=== PATIENT | male | born 1965 | race Caucasian/White ===

== ENCOUNTER 2017-01-24 13:09 | Emergency (ER) | payer OTHER ==
[~2017-01-24] VITALS: Ht 190.5 cm; Wt 90.9 kg
[~2017-01-24 13:09] MED LIST: CLON.2 PO
[2017-01-24 16:24] VITALS: BP 132/83
== END 2017-01-24 16:59 | disposition home or self-care (01) ==
LOC: EMS 13:14
DX: Z48.02 Encounter for removal of sutures (principal)
CPT/HCPCS: 99281

== ENCOUNTER 2017-03-19 00:40 | Emergency (ER) | payer OTHER ==
[~2017-03-19] VITALS: Ht 190.5 cm; Wt 100.0 kg
[2017-03-19] MEDS ORDERED: SODIUM CHLORIDE 0.9% 1,000 ML IV ONE (00:51)
[2017-03-19] MEDS ORDERED: ONDANSETRON HCL 4 MG/2 ML VIAL IVP ONE (01:00)
[2017-03-19] MEDS ORDERED: MAGNESIUM SULFATE 2 GM, MVI, ADULT NO.1 WITH VIT K 10 ML, THIAMINE HCL 100 MG, FOLIC AC... IV ONE ×5 (01:00)
[2017-03-19 01:13] LABS: BASOPHILS # (AUTO) 0.07 K/uL (0.00-0.20); BASOPHILS % (AUTO) 1.9 % (0.0-2.0); EOSINOPHILS # (AUTO) 0.04 K/uL (0.00-0.70); EOSINOPHILS % (AUTO) 1.02 % (1.0-6.0); HEMATOCRIT 38.7 % (41-53); HEMOGLOBIN 13.4 g/dL (13.5-17.5); LYMPHOCYTES # (AUTO) 1.6 K/uL (1.0-4.8); LYMPHOCYTES % (AUTO) 43.1 % (22.0-44.0); MEAN CORPUSCULAR HEMOGLOBIN 36.2 pg (26.0-34.0); MEAN CORPUSCULAR HGB CONC 34.5 G/dL (31.0-37.0); MEAN CORPUSCULAR VOLUME 105 fL (80-100); MONOCYTES # (AUTO) 0.2 K/uL (0.1-1.0); MONOCYTES % (AUTO) 5.2 % (2.0-9.0); NEUTROPHILS # (AUTO) 1.8 K/uL (1.8-7.7); NEUTROPHILS % (AUTO) 48.8 % (40.0-70.0); PLATELET COUNT (AUTO) 412 K/uL (150-450); RED BLOOD CELL COUNT(AUTO) 3.69 MIL/uL (4.50-5.90); WHITE BLOOD COUNT (AUTO) 3.6 K/uL (4.5-11.0)
[2017-03-19 01:25] LABS: ANION GAP 12 mmol/L (8-16); CALCIUM, TOTAL 8.4 mg/dL (8.8-10.5); CARBON DIOXIDE 27 mmol/L (22-29); CHLORIDE 105 mmol/L (98-107); CREATININE 1.03 mg/dL (0.60-1.30); GLOMERULAR FILTR. RATE CALC > 60 mL/min (>60); POTASSIUM 3.9 mmol/L (3.5-5.1); SODIUM SERUM 144 mmol/L (136-145); UREA NITROGEN, BLOOD 10 mg/dL (7-18)
[2017-03-19 01:30] LABS: ALANINE AMINOTRANSFERASE 184 U/L (12-78); ASPARTATE AMINOTRANSFERASE 126 U/L (15-37); BILIRUBIN,TOTAL 0.8 mg/dL (0.1-1.0); TOTAL PROTEIN, SERUM 7.3 g/dL (6.4-8.2)
[2017-03-19 02:34] LABS: RBC MORPHOLOGY COMMENT ABNORMAL RBC MORPH
[2017-03-19 05:29] VITALS: BP 129/79
== END 2017-03-19 05:42 | disposition home or self-care (01) ==
LOC: EMS 00:42
DX: F10.229 Alcohol dependence with intoxication, unspecified (principal); R25.1 Tremor, unspecified; Y90.8 Blood alcohol level of 240 mg/100 ml or more
CPT/HCPCS: 36415; 80053; 83690; 85025; 96365; 96375; 99284; G0480; J2405; J3411; J3475; J3490 ×2; J7030

== ENCOUNTER 2017-03-19 09:23 | Emergency (ER) | payer OTHER ==
[~2017-03-19] VITALS: Ht 175.3 cm; Wt 100.0 kg
[2017-03-19 10:26] LABS: BASOPHILS % (AUTO) 2.4 % (0.0-2.0); EOSINOPHILS % (AUTO) 0.2 % (1.0-6.0); HEMATOCRIT 36.7 % (41-53); HEMOGLOBIN 12.6 g/dL (13.5-17.5); LYMPHOCYTES # (AUTO) 0.9 K/uL (1.0-4.8); LYMPHOCYTES % (AUTO) 23.5 % (22.0-44.0); MEAN CORPUSCULAR HEMOGLOBIN 35.8 pg (26.0-34.0); MEAN CORPUSCULAR HGB CONC 34.4 G/dL (31.0-37.0); MEAN CORPUSCULAR VOLUME 104 fL (80-100); MONOCYTES # (AUTO) 0.2 K/uL (0.1-1.0); NEUTROPHILS # (AUTO) 2.7 K/uL (1.8-7.7); NEUTROPHILS % (AUTO) 67.9 % (40.0-70.0); PLATELET COUNT (AUTO) 394 K/uL (150-450); RED BLOOD CELL COUNT(AUTO) 3.52 MIL/uL (4.50-5.90); RED CELL DISTRIBUTION WIDTH 14.4 % (11.5-14.5)
[2017-03-19 10:38] LABS: ANION GAP 15 mmol/L (8-16); CARBON DIOXIDE 23 mmol/L (22-29); CHLORIDE 105 mmol/L (98-107); CREATININE 0.99 mg/dL (0.60-1.30); GLOMERULAR FILTR. RATE CALC > 60 mL/min (>60); POTASSIUM 3.7 mmol/L (3.5-5.1); SODIUM SERUM 143 mmol/L (136-145); UREA NITROGEN, BLOOD 10 mg/dL (7-18)
[2017-03-19 10:44] LABS: ALANINE AMINOTRANSFERASE 164 U/L (12-78); ALBUMIN 4.1 g/dL (3.4-5.0); ASPARTATE AMINOTRANSFERASE 114 U/L (15-37); BILIRUBIN,TOTAL 0.9 mg/dL (0.1-1.0); TOTAL PROTEIN, SERUM 7.2 g/dL (6.4-8.2)
[2017-03-19 11:17] LABS: RBC MORPHOLOGY COMMENT ABNORMAL RBC MORPH
[2017-03-19 14:40] VITALS: BP 144/80
== END 2017-03-19 15:07 | disposition home or self-care (01) ==
LOC: EMS 09:25
DX: F10.229 Alcohol dependence with intoxication, unspecified (principal); R11.2 Nausea with vomiting, unspecified; Y90.8 Blood alcohol level of 240 mg/100 ml or more
CPT/HCPCS: 36415; 80053; 80307; 85025; 99284; G0480

== ENCOUNTER 2017-03-31 16:02 | Emergency (ER) | payer OTHER ==
[~2017-03-31] VITALS: Ht 190.5 cm; Wt 86.4 kg
[2017-03-31 21:14] VITALS: BP 135/87
== END 2017-03-31 21:08 | disposition home or self-care (01) ==
LOC: EMS 16:03
DX: F10.129 Alcohol abuse with intoxication, unspecified (principal); F32.9 Major depressive disorder, single episode, unspecified
CPT/HCPCS: 99283

== ENCOUNTER 2019-01-30 23:09 | Emergency (ER) | payer OTHER ==
[~2019-01-30] VITALS: Ht 190.5 cm; Wt 100.0 kg
[2019-01-31 00:37] LABS: GLUCOSE,POINT OF CARE 96 MG/DL (70-110)
[2019-01-31 00:40] LABS: BASOPHILS % (AUTO) 2.9 % (0.0-2.0); EOSINOPHILS % (AUTO) 9.7 % (1.0-6.0); HEMATOCRIT 35.7 % (41-53); LYMPHOCYTES # (AUTO) 1.4 K/uL (1.0-4.8); MEAN CORPUSCULAR HEMOGLOBIN 37.1 pg (26.0-34.0); MEAN CORPUSCULAR HGB CONC 33.5 G/dL (31.0-37.0); MEAN CORPUSCULAR VOLUME 111 fL (80-100); MONOCYTES # (AUTO) 0.3 K/uL (0.1-1.0); MONOCYTES % (AUTO) 6.8 % (2.0-9.0); NEUTROPHILS # (AUTO) 2.6 K/uL (1.8-7.7); NEUTROPHILS % (AUTO) 51.6 % (40.0-70.0); PLATELET COUNT (AUTO) 307 K/uL (150-450); RED BLOOD CELL COUNT(AUTO) 3.22 MIL/uL (4.50-5.90); RED CELL DISTRIBUTION WIDTH 14.1 % (11.5-14.5)
[2019-01-31 00:47] LABS: ANION GAP 13 mmol/L (8-16); CARBON DIOXIDE 27 mmol/L (22-29); CHLORIDE 101 mmol/L (98-107); CREATININE 0.93 mg/dL (0.60-1.30); GLOMERULAR FILTR. RATE CALC > 60 mL/min (>60); GLUCOSE,RANDOM 95 mg/dL (70-110); POTASSIUM 3.8 mmol/L (3.5-5.1); SODIUM SERUM 141 mmol/L (136-145); UREA NITROGEN, BLOOD 12 mg/dL (7-18)
[2019-01-31 00:53] LABS: ALANINE AMINOTRANSFERASE 69 U/L (12-78); ALBUMIN 4.2 g/dL (3.4-5.0); ALKALINE PHOSPHATASE 89 U/L (46-116); ASPARTATE AMINOTRANSFERASE 100 U/L (15-37); BILIRUBIN,TOTAL 0.6 mg/dL (0.1-1.0); TOTAL PROTEIN, SERUM 7.6 g/dL (6.4-8.2)
[2019-01-31 00:59] LABS: AMPHET/METH SCREEN,URINE NEGATIVE (NEGATIVE); BARBITURATE SCREEN, URINE NEGATIVE (NEGATIVE); BENZODIAZEPINES SCREEN,URINE POSITIVE (NEGATIVE); CANNABINOID SCREEN,URINE NEGATIVE (NEGATIVE); COCAINE SCREEN,URINE NEGATIVE (NEGATIVE); METHADONE SCREEN, URINE NEGATIVE (NEGATIVE); OPIATE SCREEN,URINE NEGATIVE (NEGATIVE)
[2019-01-31 01:08] LABS: PHENCYCLIDINE SCREEN,URINE NEGATIVE (NEGATIVE)
[2019-01-31] MEDS ORDERED: SODIUM CHLORIDE 0.9% 1,000 ML IV ONE (05:00)
[2019-01-31 08:00] VITALS: BP 122/77
== END 2019-01-31 08:07 | disposition home or self-care (01) ==
LOC: EMS 23:10
DX: S02.2XXA Fracture of nasal bones, initial encounter for closed fracture (principal); F10.129 Alcohol abuse with intoxication, unspecified; M25.562 Pain in left knee; F32.9 Major depressive disorder, single episode, unspecified; W19.XXXA Unspecified fall, initial encounter; Y93.89 Activity, other specified; Y92.89 Other specified places as the place of occurrence of the external cause; Y99.8 Other external cause status
CPT/HCPCS: 36415; 70450; 70486; 72125; 80053; 80307; 82962; 85025; 99284; G0480

== ENCOUNTER 2021-01-16 10:21 | Emergency (ER) | payer MEDICAID ==
[~2021-01-16] VITALS: Ht 167.6 cm; Wt 81.8 kg
[2021-01-16 12:16] LABS: HEMOGLOBIN 11.6 g/dL (13.5-17.5); LYMPHOCYTES # (AUTO) 0.8 K/uL (1.0-4.8); MONOCYTES # (AUTO) 0.2 K/uL (0.1-1.0); PLATELET COUNT (AUTO) 194 K/uL (150-450)
[2021-01-16 12:24] LABS: BASOPHILS % (AUTO) 1.5 % (0.0-2.0); EOSINOPHILS % (AUTO) 2.3 % (1.0-6.0); HEMATOCRIT 35.2 % (41-53); LYMPHOCYTES % (AUTO) 30.1 % (22.0-44.0); MEAN CORPUSCULAR HEMOGLOBIN 33.4 pg (26.0-34.0); MEAN CORPUSCULAR HGB CONC 32.9 G/dL (31.0-37.0); MEAN CORPUSCULAR VOLUME 102 fL (80-100); MONOCYTES % (AUTO) 7.1 % (2.0-9.0); NEUTROPHILS # (AUTO) 1.7 K/uL (1.8-7.7); RED BLOOD CELL COUNT(AUTO) 3.47 MIL/uL (4.50-5.90); RED CELL DISTRIBUTION WIDTH 17.1 % (11.5-14.5)
[2021-01-16 12:25] LABS: ANION GAP 14 mmol/L (8-16); CALCIUM, TOTAL 8.3 mg/dL (8.8-10.5); CARBON DIOXIDE 28 mmol/L (22-29); CHLORIDE 103 mmol/L (98-107); CREATININE 0.95 mg/dL (0.60-1.30); GLOMERULAR FILTR. RATE CALC > 60 mL/min (>60); GLUCOSE,RANDOM 85 mg/dL (70-110); POTASSIUM 4.2 mmol/L (3.5-5.1); SODIUM SERUM 145 mmol/L (136-145); UREA NITROGEN, BLOOD 15 mg/dL (7-18)
[2021-01-16 12:31] LABS: ALANINE AMINOTRANSFERASE 157 U/L (12-78); ALBUMIN 3.8 g/dL (3.4-5.0); ALKALINE PHOSPHATASE 141 U/L (46-116); ASPARTATE AMINOTRANSFERASE 384 U/L (15-37); TOTAL PROTEIN, SERUM 8.1 g/dL (6.4-8.2)
[2021-01-16] MEDS ORDERED: PERMETHRIN 5% 60 GM CREAM TP ONE (13:45)
[2021-01-16 18:31] VITALS: BP 115/67
[2021-01-16] MEDS ORDERED: GENTAMICIN SULFATE 0.3% OPHTHALMIC SOLUTION 5 ML OS ONE (19:00)
[2021-01-16] MEDS ORDERED: ACETAMINOPHEN 500 MG TABLET PO ONE (19:00)
== END 2021-01-16 21:20 | disposition home or self-care (01) ==
LOC: EDBD 10:28 → MERGE 10:28 → EMS 10:28
DX: S00.81XA Abrasion of other part of head, initial encounter (principal); H10.402 Unspecified chronic conjunctivitis, left eye; R41.82 Altered mental status, unspecified; F10.129 Alcohol abuse with intoxication, unspecified; B85.0 Pediculosis due to Pediculus humanus capitis; X58.XXXA Exposure to other specified factors, initial encounter; Y93.89 Activity, other specified; Y92.89 Other specified places as the place of occurrence of the external cause; Y99.8 Other external cause status; Y90.8 Blood alcohol level of 240 mg/100 ml or more
CPT/HCPCS: 36415; 70450; 80053; 85025; 99285; G0480